=== PATIENT | female | born 1935 | race Caucasian/White ===

== ENCOUNTER 2017-12-13 14:03 | Inpatient (IN) | payer MEDICARE ==
[2017-12-13] VITALS (20 sets, daily range): BP systolic 127–208; BP diastolic 63–99
[~2017-12-13] VITALS: Ht 154.9 cm; Wt 88.0 kg
[~2017-12-13 14:03] MED LIST: CEFAZOLIN SODIUM 1 GM VIAL IVP ONE; SILVER SULFADIAZINE CREAM 50 GM TP ONE
[2017-12-13] MEDS ORDERED: SUCCINYLCHOLINE 200MG/10ML SYR ONE (14:08)
[2017-12-13] MEDS ORDERED: MIDAZOLAM HCL 1 MG/ML 2ML VIAL ONE (14:08)
[2017-12-13] MEDS ORDERED: LIDOCAINE PF 2% 5ML ABBOJECT ONE (14:08)
[2017-12-13] MEDS ORDERED: DEXAMETHASONE SOD PHOSPHATE 10MG/ML 1ML VIAL ONE ×2 (14:08→14:11)
[2017-12-13] MEDS ORDERED: GLYCOPYRROLATE 1 MG/5 ML SYRINGE ONE (14:09)
[2017-12-13] MEDS ORDERED: NEOSTIGMINE 5MG/5ML SYR IV ONE (14:09)
[2017-12-13] MEDS ORDERED: ONDANSETRON HCL 4 MG/2 ML VIAL ONE (14:09)
[2017-12-13] MEDS ORDERED: ROCURONIUM 10MG/1ML SYR 10 MG/ML ML ONE (14:10)
[2017-12-13] MEDS ORDERED: PROPOFOL 10 MG/ML 20ML VIAL IV ONE (14:10)
[2017-12-13] MEDS ORDERED: FENTANYL CITRATE PF 50 MCG/1 ML 2ML VIAL ONE (14:11)
[2017-12-13 14:23] LABS: BASOPHILS % (AUTO) 0.9 % (0.0-5.0); EOSINOPHILS % (AUTO) 1.2 % (0.0-8.0); HEMATOCRIT 42.4 % (36-48); LYMPHOCYTES % (AUTO) 17.4 % (21.0-51.0); MEAN CORPUSCULAR VOLUME 94.1 fL (79-99); MONOCYTES % (AUTO) 7.2 % (3.0-13.0); NEUTROPHILS % (AUTO) 73.3 % (40.0-77.0); PLATELET COUNT (AUTO) 240 K/uL (130-400); RED BLOOD CELL COUNT(AUTO) 4.51 MIL/uL (4.00-5.50); RED CELL DISTRIBUTION WIDTH 14.2 % (11.0-15.5); WHITE BLOOD COUNT (AUTO) 11.4 K/uL (4.8-10.8)
[2017-12-13 14:39] LABS: INR 0.99 (0.85-1.15); PARTIAL THROMBOPLASTIN TIME 23.1 SEC (26.3-35.5); PROTHROMBIN TIME 10.4 SEC (9.6-11.6)
[2017-12-13 14:41] LABS: CREATININE 1.2 mg/dL (0.5-1.5); POTASSIUM 4.2 mmol/L (3.5-5.1)
[2017-12-13 14:46] LABS: ALBUMIN 3.3 g/dL (3.5-5.0); BILIRUBIN,TOTAL 1.1 mg/dL (0.2-1.0); TOTAL PROTEIN, SERUM 7.2 g/dL (6.0-8.3)
[2017-12-13] MEDS ORDERED: SODIUM CHLORIDE 0.9% 1000ML 1,000 ML IV SCH (20:15)
[2017-12-13] MEDS ORDERED: ACETAMINOPHEN-CODEINE 300/30MG TAB PO PRN (20:15)
[2017-12-13] MEDS: CEFAZOLIN SODIUM 1 GM VIAL IVP SCH (21:40)
[2017-12-13] MEDS: INSULIN HUMULIN R 100 UNIT/ML 3ML SQ SCH (22:15)
[2017-12-13] MEDS ORDERED: CLONIDINE HCL 0.1 MG TABLET PO PRN (22:30)
[2017-12-13] MEDS ORDERED: CLONIDINE HCL 0.1 MG TABLET ONE (23:08)
[2017-12-13] MEDS ORDERED: INSULIN HUMULIN R 100 UNIT/ML 3ML ONE (23:09)
[2017-12-13] MEDS ORDERED: FLUO-126 PO (23:51)
[2017-12-13] MEDS ORDERED: AMLO5TAB7 PO (23:51)
[2017-12-13] MEDS ORDERED: INSU3INS3 SQ (23:51)
[2017-12-13] MEDS ORDERED: LEVO50TA11 PO (23:51)
[2017-12-13] MEDS ORDERED: HYDR25TA PO (23:51)
[2017-12-13] MEDS ORDERED: GLIM2TAB3 PO (23:51)
[2017-12-13] MEDS ORDERED: LISI-613 PO (23:55)
[2017-12-13] MEDS ORDERED: METF-446 PO (23:55)
[2017-12-14] MEDS ORDERED: CEPH500C2 PO (00:02)
[2017-12-14] MEDS ORDERED: TYL3B PO (00:03)
[2017-12-14 04:00] VITALS: BP 180/71
[2017-12-14] MEDS: CEFAZOLIN SODIUM 1 GM VIAL IVP SCH (04:41)
[2017-12-14 05:19] LABS: HEMATOCRIT 38.9 % (36-48); MEAN CORPUSCULAR HEMOGLOBIN 32.5 pg (27.0-33.0); MEAN CORPUSCULAR HGB CONC 34.6 g/dL (32.0-36.0); MEAN CORPUSCULAR VOLUME 93.9 fL (79-99); PLATELET COUNT (AUTO) 207 K/uL (130-400); RED BLOOD CELL COUNT(AUTO) 4.14 MIL/uL (4.00-5.50); RED CELL DISTRIBUTION WIDTH 14.4 % (11.0-15.5); WHITE BLOOD COUNT (AUTO) 8.7 K/uL (4.8-10.8)
[2017-12-14 07:30] VITALS: BP 161/68
[2017-12-14] MEDS: INSULIN HUMULIN R 100 UNIT/ML 3ML SQ SCH ×2 (07:30→11:30)
[2017-12-14] MEDS ORDERED: GLIMEPIRIDE 2 MG TABLET PO SCH (08:00)
[2017-12-14] MEDS ORDERED: METFORMIN HCL 500 MG TABLET PO SCH (08:00)
[2017-12-14] MEDS ORDERED: HYDROCHLOROTHIAZIDE 25 MG TABLET PO SCH (09:00)
[2017-12-14] MEDS ORDERED: LISINOPRIL 20 MG TABLET PO SCH (09:00)
[2017-12-14] MEDS ORDERED: FLUOXETINE HCL 20 MG CAPSULE PO SCH (09:00)
[2017-12-14] MEDS ORDERED: LEVOTHYROXINE 50 MCG TABLET PO SCH (09:00)
[2017-12-14] MEDS ORDERED: INSULIN GLARGINE 100 UNITS/ML 10 ML VIAL SQ SCH (09:00)
[2017-12-14] MEDS ORDERED: AMLODIPINE BESYLATE 5 MG TAB PO SCH (09:00)
[2017-12-14] MEDS ORDERED: HYDRALAZINE HCL 20 MG/ML VIAL IV PRN (10:45)
[2017-12-14] MEDS ORDERED: CLONIDINE HCL 0.1 MG TABLET PO PRN (10:45)
[2017-12-14 11:00] VITALS: BP 191/87
== END 2017-12-14 14:30 | disposition home or self-care (01) | DRG 909 ==
LOC: EDH 14:03 → EDHIP 14:32 → 3DH 17:53
PROVIDERS: ADMIT Otolaryngology Plastic Surgery within the Head & Neck; ATTEND Otolaryngology Plastic Surgery within the Head & Neck
PROC: 0HB1XZZ Excision of Face Skin, External Approach (ICD-10-PCS; principal; 2017-12-13 16:15)
PROC: 0W320ZZ Control Bleeding in Face, Open Approach (ICD-10-PCS; 2017-12-13 16:15)
DX: L76.32 Postprocedural hematoma of skin and subcutaneous tissue following other procedure (principal); G51.0 Bell's palsy; E03.9 Hypothyroidism, unspecified; E11.9 Type 2 diabetes mellitus without complications; E78.5 Hyperlipidemia, unspecified; I10 Essential (primary) hypertension; H26.9 Unspecified cataract; Y83.8 Other surgical procedures as the cause of abnormal reaction of the patient, or of later complication, without mention of misadventure at the time of the procedure; Z79.4 Long term (current) use of insulin; Z87.891 Personal history of nicotine dependence; Z81.8 Family history of other mental and behavioral disorders; Z83.6 Family history of other diseases of the respiratory system; Z82.49 Family history of ischemic heart disease and other diseases of the circulatory system
CPT/HCPCS: 36415; 80053; 82948; 85025; 85027; 85610; 85730; 88304; A4606; J0330; J0690; J1100; J1815; J2001; J2250; J2405; J2704; J2710; J3010; J3490; J7030